=== PATIENT | female | born 1970 | race Caucasian/White ===

== ENCOUNTER 2021-03-20 08:44 | Emergency (ER) | payer OTHER ==
[~2021-03-20] VITALS: Ht 165.1 cm; Wt 88.0 kg
[2021-03-20] MEDS ORDERED: DIPHENHYDRAMINE 25MG CAPSULE PO ONE (09:45)
[2021-03-20] MEDS ORDERED: METHYLPREDNISOLONE SOD SUCC 125 MG/2 ML VIAL IM ONE (09:45)
[2021-03-20] MEDS ORDERED: FAMOTIDINE 20MG TABLET PO ONE (09:45)
[2021-03-20] MEDS ORDERED: FAMO40TA70 MT (10:35)
[2021-03-20] MEDS ORDERED: B25 MT (10:35)
[2021-03-20] MEDS ORDERED: P20 MT (10:35)
[2021-03-20 11:15] VITALS: BP 118/72
== END 2021-03-20 11:23 | disposition home or self-care (01) ==
LOC: ER 08:44
DX: T78.1XXA Other adverse food reactions, not elsewhere classified, initial encounter (principal); R06.02 Shortness of breath; R07.0 Pain in throat; X58.XXXA Exposure to other specified factors, initial encounter; J45.909 Unspecified asthma, uncomplicated
CPT/HCPCS: 71045; 99283